=== PATIENT | female | born 2000 | race Caucasian/White ===

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

== ENCOUNTER 2019-01-15 11:18 | Emergency (ER) | payer OTHER ==
[2019-01-15 13:08] VITALS: TEMP 98.5
--- NOTE | 2019-01-15 14:12 | ED ---
General Adult HPI - General Chief complaint: Nausea/Vomiting/Diarrhea Stated complaint: vomiting/dizziness Time Seen by Provider: 01/15/19 13:34 Source: patient Mode of arrival: ambulatory Limitations: no limitations - History of Present Illness Initial comments: Patient is a 18-year-old female presenting to emergency Department with a chief complaint of a possible . Patient reports approximately 1 week ago she has developed nausea and vomiting and intermittent abdominal pain. Patient reports the nausea vomiting is not related to oral intake. Patient reports she is in a monogamous relationship with her boyfriend and is not concerned for STDs. Patient is not on any control. They do have unprotected sex. Patient did take a test at home and it showed a "faint line". Patient reports she went to a walk-in clinic where was also tested positive but she was not given any further instructions. Patient denies any vaginal discharge or bleeding. Patient denies increased urgency or frequency. She denies any other symptoms. - Related Data Previous Rx's Medication Instructions Recorded Meclizine [Antivert] 25 mg PO BID #20 tab 10/23/18 Ondansetron Odt [Zofran Odt] 4 mg PO Q8HR PRN #20 tab 10/23/18 Ondansetron Odt [Zofran Odt] 4 mg PO Q8HR PRN #10 tab 01/15/19 Allergies Allergy/AdvReac Type Severity Reaction Status Date / Time No Known Allergies Allergy Verified 01/15/19 13:03 Review of Systems ROS Statement: Those systems with pertinent positive or pertinent negative responses have been documented in the HPI. ROS Other: All systems not noted in ROS Statement are negative. Past Medical History Past Medical History: No Reported History History of Any Multi-Drug Resistant Organisms: None Reported Past Surgical History: Tonsillectomy Additional Past Surgical History / Comment(s): back surgery Past Psychological History: Anxiety, Bipolar Smoking Status: Never smoker Past Alcohol Use History: None Reported Past Drug Use History: None Reported General Exam Limitations: no limitations General appearance: alert, in no apparent distress Head exam: Present: atraumatic, normocephalic, normal inspection Eye exam: Present: normal appearance, PERRL, EOMI Pupils: Present: normal accommodation ENT exam: Present: normal exam, mucous membranes moist, normal external ear exam Neck exam: Present: normal inspection, full ROM Respiratory exam: Present: normal lung sounds bilaterally Cardiovascular Exam: Present: regular rate, normal rhythm, normal heart sounds GI/Abdominal exam: Present: soft, tenderness (Mild tenderness in the suprapubic region), guarding, rebound, normal bowel sounds Extremities exam: Present: normal inspection, full ROM Back exam: Present: normal inspection, full ROM. Absent: CVA tenderness (R), CVA tenderness (L) Neurological exam: Present: alert, oriented X3 Psychiatric exam: Present: normal affect, normal mood Skin exam: Present: warm, intact, normal color Course Vital Signs 01/15/19 01/15/19 13:03 15:03 Temperature 98.5 F Pulse Rate 90 84 Respiratory 18 16 Rate Blood Pressure 114/76 120/78 O2 Sat by Pulse 98 98 Oximetry Medical Decision Making - Medical Decision Making Patient is a 18-year-old female presenting to emergency Department with a chief complaint of a possible . Patient reports of the past week she has developed nausea and vomiting with intermittent abdominal cramping. Patient reports she expected her period about the same time she developed her symptoms. Patient reports her periods are typically had but this time it has only been spotting mildly. Patient is concerned for . Patient does not have a concern for STDs because she is a monogamous relationship with her boyfriend. Patient does practice unprotected sex. Her test showed unreliable results. Serum hCG is negative. The rest of the laboratory work is unremarkable. Patient declined a pelvic exam. Patient doesn't have any UTI type symptoms. Patient doesn't have any vaginal bleeding, discharge or foul smell. I have low suspicion for a vaginal infection. Patient given Zofran to manage the nausea and vomiting. I suspect her symptoms to be a result of her menstrual cycle. Patient advised to follow-up with a paperboard box maker and possibly begin a course of oral contraceptives. Strict return parameters were thoroughly discussed the patient was understanding and agreeable. Case discussed physician. - Lab Data Result diagrams: 01/15/19 14:05 01/15/19 14:05 Lab Results 01/15/19 01/15/19 01/15/19 Range/Units 14:05 14:05 14:05 WBC 6.3 (4.0-11.0) k/uL RBC 4.97 (3.80-5.40) m/uL Hgb 14.8 (11.4-16.0) gm/dL Hct 42.9 (34.0-46.0) % MCV 86.3 (80.0-100.0) fL MCH 29.8 (25.0-35.0) pg MCHC 34.6 (31.0-37.0) g/dL RDW 12.5 (11.5-15.5) % Plt Count 275 (150-450) k/uL Neutrophils % 53 % Lymphocytes % 33 % Monocytes % 6 % Eosinophils % 2 % Basophils % 3 % Neutrophils # 3.4 (1.3-7.7) k/uL Lymphocytes # 2.1 (1.0-4.8) k/uL Monocytes # 0.4 (0-1.0) k/uL Eosinophils # 0.2 (0-0.7) k/uL Basophils # 0.2 (0-0.2) k/uL Sodium 142 (137-145) mmol/L Potassium 3.6 (3.5-5.1) mmol/L Chloride 105 (98-107) mmol/L Carbon Dioxide 21 L (22-30) mmol/L Anion Gap 16 mmol/L BUN 10 (7-17) mg/dL Creatinine 0.63 (0.52-1.04) mg/dL Est GFR (CKD-EPI)AfAm >90 (>60 ml/min/1.73 sqM) Est GFR (CKD-EPI)NonAf >90 (>60 ml/min/1.73 sqM) Glucose 87 (74-99) mg/dL Calcium 9.8 (8.4-10.2) mg/dL Total Bilirubin 0.7 (0.2-1.3) mg/dL AST 29 (14-36) U/L ALT 13 (9-52) U/L Alkaline Phosphatase 90 (38-126) U/L Total Protein 8.5 H (6.3-8.2) g/dL Albumin 5.0 (3.5-5.0) g/dL HCG, Qual Not Detected Urine Color Yellow Urine Appearance Clear (Clear) Urine pH 6.5 (5.0-8.0) Ur Specific [place] 1.018 (1.001-1.035) Urine Protein Negative (Negative) Urine Glucose (UA) Negative (Negative) Urine Ketones Negative (Negative) Urine Blood Negative (Negative) Urine Nitrite Negative (Negative) Urine Bilirubin Negative (Negative) Urine Urobilinogen 3.0 (<2.0) mg/dL Ur Leukocyte Esterase Negative (Negative) Disposition Clinical Impression: Abdominal discomfort, Nausea & vomiting, Possible Disposition: HOME SELF-CARE Condition: Stable Instructions (If sedation given, give patient instructions): Acute Nausea and Vomiting (ED) Additional Instructions: Please take prescribed medication as directed. Please follow with primary care. Please return to emergency department if symptoms worsen. Prescriptions: Ondansetron Odt [Zofran Odt] 4 mg PO Q8HR PRN #10 tab PRN Reason: Nausea Is patient prescribed a controlled substance at d/c from ED?: No Referrals: None,Stated [Primary Care Provider] - 1-2 days Time of Disposition: 14:52
[2019-01-15 14:20] LABS: Appearance,Urine Clear (Clear); Basophils # (A) 0.2 k/uL (0-0.2); Basophils % (A) 3 %; Bilirubin,Urine Negative (Negative); Blood,Urine Negative (Negative); Color,Urine Yellow; Eosinophils # (A) 0.2 k/uL (0-0.7); Eosinophils % (A) 2 %; Glucose,Urine (UA) Negative (Negative); HCT 42.9 % (34.0-46.0); HGB 14.8 gm/dL (11.4-16.0); Ketones,Urine Negative (Negative); Leukocyte Esterase,Urine Negative (Negative); Lymphocytes # (A) 2.1 k/uL (1.0-4.8); Lymphocytes % (A) 33 %; MCH 29.8 pg (25.0-35.0); MCHC 34.6 g/dL (31.0-37.0); MCV 86.3 fL (80.0-100.0); Mean Platelet Volume 8.7; Monocytes # (A) 0.4 k/uL (0-1.0); Monocytes % (A) 6 %; Neutrophils # (A) 3.4 k/uL (1.3-7.7); Neutrophils % (A) 53 %; Nitrite,Urine Negative (Negative); PH, Urine 6.5 (5.0-8.0); Platelet Count 275 k/uL (150-450); Protein,Urine Negative (Negative); RBC 4.97 m/uL (3.80-5.40); RDW 12.5 % (11.5-15.5); Specific Gravity,Urine 1.018 (1.001-1.035); WBC 6.3 k/uL (4.0-11.0)
[2019-01-15 14:28] LABS: HCG,Qualitative Serum Not Detected
[2019-01-15 14:37] LABS: ALT 13 U/L (9-52); AST 29 U/L (14-36); African American GFR (CKD) >90 (>60 ml/min/1.73 sqM); Alkaline Phosphatase 90 U/L (38-126); Anion Gap 16 mmol/L; Blood Urea Nitrogen 10 mg/dL (7-17); Calcium 9.8 mg/dL (8.4-10.2); Carbon Dioxide 21 mmol/L (22-30); Chloride 105 mmol/L (98-107); Glucose 87 mg/dL (74-99); Potassium 3.6 mmol/L (3.5-5.1); Sodium 142 mmol/L (137-145); Total Bilirubin 0.7 mg/dL (0.2-1.3); Total Protein 8.5 g/dL (6.3-8.2)
[2019-01-15] MEDS ORDERED: ONDANSETRON 4 MG ODT STARTER PACK 2 TAB BTL PO STA (14:52)
[2019-01-15] MEDS ORDERED: ONDANSETRON 4 MG/2 ML VIAL IVP STA (14:52)
[2019-01-15 15:08] VITALS: BP 120/78; PULSE 84; RESP 16
== END 2019-01-15 15:03 | disposition home or self-care (01) ==
LOC: EC 11:18
DX: R11.2 Nausea with vomiting, unspecified (principal); R10.9 Unspecified abdominal pain; R19.7 Diarrhea, unspecified; R42 Dizziness and giddiness
CPT/HCPCS: 36415; 80053; 85025; 81003; 84703; 99284; 96374; J2405; S0119

== ENCOUNTER 2019-01-18 12:50 | Inpatient (IN) | payer OTHER ==
[2019-01-18 13:48] LABS: Amphetamine Screen,Urine Not Detected (NotDetected); Barbiturate Screen,Urine Not Detected (NotDetected); Benzodiazepines Screen,Urine Not Detected (NotDetected); Cocaine Screen,Urine Not Detected (NotDetected); Methadone Screen, Urine Not Detected (NotDetected); Opiate Screen,Urine Not Detected (NotDetected); Oxycodone Screen, Urine Not Detected (NotDetected); Phencyclidine Screen,Urine Not Detected (NotDetected); Tricyclic Antidepressant,Urine Not Detected (NotDetected); Urn Cannabinoid Scrn Not Detected (NotDetected)
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
[2019-01-18] MEDS ORDERED: ACETAMINOPHEN TAB 500 MG TAB PO STA (16:04)
[2019-01-18] MEDS ORDERED: IBUPROFEN 600 MG TAB PO STA (16:04)
[2019-01-18] MEDS ORDERED: LORazepam 1 MG TAB PO PRN (16:28)
[2019-01-18] MEDS ORDERED: MAGNESIUM HYDROXIDE 2,400 MG/10 ML CUP PO PRN (16:28)
[2019-01-18] MEDS ORDERED: MAG HYDROX/AL HYDROX/SIMETH 30 ML CUP PO PRN (16:28)
[2019-01-18 17:18] LABS: Appearance,Urine Cloudy (Clear); Bacteria,Urine Occasional /hpf; Bilirubin,Urine Negative (Negative); Blood,Urine Negative (Negative); Color,Urine Yellow; Glucose,Urine (UA) Negative (Negative); Ketones,Urine 1+ (Negative); Leukocyte Esterase,Urine Negative (Negative); Mucus,Urine Few /hpf; Nitrite,Urine Negative (Negative); PH, Urine 6.5 (5.0-8.0); Protein,Urine Negative (Negative); RBC,Urine 1 /hpf (0-5); Specific Gravity,Urine 1.022 (1.001-1.035); Squamous Epithelial Cell,Urine 7 /hpf (0-4); Urobilinogen,Urine <2.0 mg/dL (<2.0); WBC,Urine 1 /hpf (0-5)
[2019-01-18 18:20] VITALS: BMI 26.5
[2019-01-18] MEDS: IBUPROFEN 400 MG TAB PO PRN (21:08)
--- NOTE | 2019-01-18 21:13 | P.MDCNMH ---
History of Present Illness H&P Date: 01/18/19 Chief Complaint: suicidal ideation 18-year-old female with no significant past medical history Patient comes in today voluntarily due to suicidal ideation she denies any active plan she never attempted to commit suicide. Patient also feels depressed and seek help and psychiatry evaluation. Otherwise she denies any active medical issues he reports chronic low back pain with history of scoliosis status post saba insertion. Otherwise she denies any fevers or chills nausea vomiting coughing or chest pain denies any trouble breathing abdominal pain changes in her bowel or urinary habits Review of Systems Pertinent positives as noted in HPI. All other systems were reviewed and are negative Past Medical History Past Medical History: No Reported History History of Any Multi-Drug Resistant Organisms: None Reported Past Surgical History: Tonsillectomy Additional Past Surgical History / Comment(s): back surgery Past Psychological History: Anxiety, Bipolar Smoking Status: Never smoker Past Alcohol Use History: None Reported Past Drug Use History: None Reported - Past Family History mother Additional Family Medical History / Comment(s): depression, schizophrenia, from a suicide Medications and Allergies Home Medications Medication Instructions Recorded Confirmed Type Ibuprofen [Motrin Ib] 400 mg PO Q6H PRN 01/18/19 01/18/19 History Allergies Allergy/AdvReac Type Severity Reaction Status Date / Time No Known Allergies Allergy Verified 01/18/19 17:06 Physical Exam Vitals: Vital Signs Temp Pulse Pulse Resp BP BP Pulse Ox 01/18/19 18:12 98.8 F 96 14 111/64 98 01/18/19 17:17 98.8 F 96 14 111/64 98 01/18/19 16:12 86 16 110/69 99 01/18/19 12:51 98.6 F 112 H 20 120/81 97 Intake and Output 01/18/19 01/18/19 01/18/19 06:59 14:59 22:59 Other: Weight 68.039 kg 81.5 kg Constitutional: No acute distress, conversant, pleasant Eyes: Anicteric sclerae, moist conjunctiva, no lid-lag Pupils equal round reactive to light ENMT: NC/AT Oropharynx clear, no erythema, exudates Neck: Supple, FROM, no masses, or JVD No carotid bruits No thyromegaly Lungs: Clear to auscultation Clear to percussion Normal respiratory effort, no accessory muscle use Cardiovascular: Heart regular in rate and rhythm, No murmurs, gallops, or rubs No peripheral edema Abdominal: Soft,reported some mild discomfort to palpation of the left lower back Nontender, no guarding, rebound or rigidity Abdomen moving with respiration Normoactive bowel sounds No hepatomegaly, No splenomegaly No palpable mass No abdominal wall hernia noted Skin: Normal temperature, tone, texture, turgor No induration No subcutaneous nodules No rash, lesions No ulcers Extremities: No digital cyanosis No clubbing Pedal pulses intact and symmetrical Radial pulses intact and symmetrical No calf tenderness fat pad over C7 Psychiatric: Alert and oriented to person, place and time Appropriate affect fair judgment Neuro Muscles Strength 5/5 in all 4 extremities Sensation to light touch grossly present throughout Cranial nerves II-XII grossly intact No focal sensory deficits Lymphatics: no palpable cervical or supraclavicular , or inguinal lymph nodes Cranial Nerve Examination - Cranial Nerves Cranial Nerve II- Optic: Intact Cranial Nerve III- Oculomotor: Intact Cranial Nerve IV- Trochlear: Intact Cranial Nerve V- Trigeminal: Intact Cranial Nerve - Abducens: Intact Cranial Nerve VII- Facial: Intact Cranial Nerve VIII- Auditory: Intact Cranial Nerve IX- Glossopharyngeal: Intact Cranial Nerve X- Vagus: Intact Cranial Nerve XI- Accessory: Intact Cranial Nerve XII- Hypoglossal: Intact Results Labs: Abnormal Lab Results - Last 24 Hours (Table) 01/18/19 Range/Units 13:04 Urine Appearance Cloudy H (Clear) Urine Ketones 1+ H (Negative) Ur Squamous Epith Cells 7 H (0-4) /hpf Urine Bacteria Occasional H (None) /hpf Urine Mucus Few H (None) /hpf Assessment and Plan Assessment: 18-year-old female with no significant past medical history presented to the hospital due to overwhelming depression and some suicidal ideation medicine consulted for medical management Plan: depression and suicidal ideation Management per psych Suicide precautions Chronic back pain with history of scoliosis status post rods Pain control with ibuprofen Follow-up outpatient with ortho Low risk for DVT patient ambulatory Thank you for allowing us to participate in the care of this patient. We will follow peripherally. Do not hesitate to contact us with questions. Someone can be reached from the [facility] hospitalist group at all hours of the day at [phone].
[2019-01-19 08:13] LABS: ALT 19 U/L (9-52); AST 18 U/L (14-36); African American GFR (CKD) >90 (>60 ml/min/1.73 sqM); Albumin 4.4 g/dL (3.5-5.0); Alkaline Phosphatase 93 U/L (38-126); Anion Gap 12 mmol/L; Blood Urea Nitrogen 10 mg/dL (7-17); Calcium 9.7 mg/dL (8.4-10.2); Carbon Dioxide 24 mmol/L (22-30); Chloride 104 mmol/L (98-107); Cholesterol 148 mg/dL (<200); Glucose 97 mg/dL (74-99); HDL Cholesterol 37 mg/dL (40-60); LDL Cholesterol,Calculated 92 mg/dL (0-99); Potassium 4.3 mmol/L (3.5-5.1); Sodium 140 mmol/L (137-145); Total Bilirubin 0.6 mg/dL (0.2-1.3); Total Protein 7.4 g/dL (6.3-8.2); Triglycerides 96 mg/dL (<150)
[2019-01-19 08:17] LABS: Basophils # (A) 0.1 k/uL (0-0.2); Basophils % (A) 1 %; Eosinophils # (A) 0.1 k/uL (0-0.7); Eosinophils % (A) 2 %; HCT 37.3 % (34.0-46.0); HGB 13.3 gm/dL (11.4-16.0); Lymphocytes % (A) 15 %; MCH 30.6 pg (25.0-35.0); MCHC 35.6 g/dL (31.0-37.0); MCV 85.8 fL (80.0-100.0); Mean Platelet Volume 9.1; Monocytes # (A) 0.4 k/uL (0-1.0); Monocytes % (A) 7 %; Neutrophils # (A) 4.8 k/uL (1.3-7.7); Neutrophils % (A) 73 %; Platelet Count 225 k/uL (150-450); RBC 4.34 m/uL (3.80-5.40); RDW 12.4 % (11.5-15.5); WBC 6.6 k/uL (4.0-11.0)
[2019-01-19] MEDS: IBUPROFEN 400 MG TAB PO PRN (13:49)
[2019-01-19] MEDS: ACETAMINOPHEN TAB 325 MG TAB PO PRN (15:30)
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
[2019-01-19 21:03] LABS: Hemoglobin A1C 4.8 % (4.0-6.0)
[2019-01-20] MEDS: buPROPion XL 150 MG TAB.ER.24H PO SCH (08:57)
--- NOTE | 2019-01-20 11:06 | P.PN ---
Progress Note - Text Progress Note Date: 01/20/19 Identifying Information 18-year-old female admitted to [facility] with worsening symptoms of depression. Interval history Patient was seen today. She reports stuffy nose and difficulty breathing. She says motrin has helped her with her sore throat but complains of stuffy nose. She continues to report feeling amotivated. She reports poor sleep and asked for medication to help her with sleep. She reports being compliant wither prescribed medications. No side effects reported. MENTAL STATUS EXAMINATION: Patient appears her stated age in fair grooming and hygiene. The patient is alert and oriented 4 and in no apparent distress. Motor and speech behaviors are within normal limits. Mood is "tired" and affect is constricted. thought processes linear thought content is negative for suicidal or homicidal ideation. insight and judgment are fair ASSESSMENT Major depression recurrent type PLAN: Continue wellbutrin 150mg po q day for depression Will start remeron 7.5mg po qhs for insomnia Will start her on Claritin D and flonase for nasal stuffiness and difficulty b reathing while pending an evaluation by asbestos shingle inspector.
[2019-01-20] MEDS: LORATADINE-PSEUDOEPH 5-120 MG 1 EACH TAB.ER.12H PO SCH ×2 (11:09→20:58)
[2019-01-20] MEDS: FLUTICASONE 50MCG/SPRAY NASAL 16GM EA NOSTRIL SCH (11:09)
[2019-01-20] MEDS: ACETAMINOPHEN TAB 325 MG TAB PO PRN (19:04)
[2019-01-20] MEDS: IBUPROFEN 400 MG TAB PO PRN (19:04)
[2019-01-20] MEDS: MIRTAZAPINE 15 MG TAB PO SCH (20:57)
[2019-01-21] MEDS: buPROPion XL 150 MG TAB.ER.24H PO SCH (08:00)
[2019-01-21] MEDS: FLUTICASONE 50MCG/SPRAY NASAL 16GM EA NOSTRIL SCH (08:00)
[2019-01-21] MEDS: LORATADINE-PSEUDOEPH 5-120 MG 1 EACH TAB.ER.12H PO SCH ×2 (08:00→20:47)
--- NOTE | 2019-01-21 11:33 | P.PN ---
Progress Note - Text Interval history: The patient is found in the hallway she follows me to an interview room. She reports her mood has improved. She presented with suicidal ideation but states that that is improved. She states that she's been sleeping much better appetite is improved attention to ADLs has improved. She was started on Wellbutrin XL over the weekend as well as Remeron we discussed those medications in detail her questions were answered. She has no history of seizures. She states that she is upset that she is missing her first day of school tomorrow she is also missing work we discussed that we need to prioritize her safety over those settings although they are important. We discussed having a support meeting arranged by social work and she is agreeable. Mental status exam: The patient is an alert female appearing her stated age she stressor own clothing. Eye contact is appropriate speech is fluent spontaneous nonpressured. She reports that her mood has been depressed but it's improving and she feels safer. She is reporting no homicidal ideation intent or plan she is reporting no acute suicidal ideation intent or plan. She reports her hopeless thinking is resolving. She is tearful during a portion of the session but is redirectable. She reports no auditory or visual hallucinations or any specific delusions. She demonstrates no tangential thinking loose associations or flight of ideas. Insight and judgment improving. Plan: The patient will continue on her current psychotropic medication. We discussed possibly titrating the Wellbutrin XL to 300 mg but she does not wish to do that. We will have social work arrange a support meeting. We will consider discharging her in the next 1-2 days if clinically appropriate. Vital signs reviewed.
[2019-01-21] MEDS: IBUPROFEN 400 MG TAB PO PRN (18:23)
[2019-01-21] MEDS: MIRTAZAPINE 15 MG TAB PO SCH (20:46)
[2019-01-22 06:48] VITALS: BP 99/54; PULSE 87; RESP 18; TEMP 98.6
[2019-01-22] MEDS: buPROPion XL 150 MG TAB.ER.24H PO SCH (08:31)
[2019-01-22] MEDS: FLUTICASONE 50MCG/SPRAY NASAL 16GM EA NOSTRIL SCH (08:31)
[2019-01-22] MEDS: LORATADINE-PSEUDOEPH 5-120 MG 1 EACH TAB.ER.12H PO SCH (08:31)
--- NOTE | 2019-01-22 09:51 | P.DS ---
Providers Date of admission: 01/18/19 16:04 Expected date of discharge: 01/22/19 Attending physician: Toñito Ramirez Consults: 01/18/19 16:28 Consult Physician Routine Consulting Provider: Sandy Hickman Consult Reason/Comments: medical management Do you want consulting provider notified?: Yes Primary care physician: Stated None - Discharge Diagnosis(es) (1) Major depressive disorder, recurrent severe without psychotic features Current Visit: Yes Status: Acute Priority: High Hospital Course: Brief summary of admission note: This patient was admitted to the mental health unit for worsening symptoms of depression and suicidal ideation. She presented reporting difficulty getting out of bed having poor motivation thinking too much. This led to her having hopeless thinking and suicidal thoughts. Please refer to the psychiatric evaluation dictated 01/19/2019. Summary of hospital course: The patient was admitted to the mental health unit voluntarily by Dr. Cochran. I assumed care of the patient beginning yesterday. The patient was admitted for symptoms of depression with hopelessness thinking. She was placed on Wellbutrin XL 150 mg in the morning and Remeron 7.5 mg at bedtime. The patient was seen by internal medicine for routine history and physical exam. Social work met with the patient to complete a psychosocial assessment and begin discharge planning. The patient seemed to have reported a progressive improvement of symptoms while here. Yesterday she indicated that her suicidal thoughts had resolved she was no longer hopeless. We have decided to monitor her for another 24 hours to continue assessing her acute safety risk. She has been attending groups. She has been compliant with medication she's demonstrated no agitated behavior. 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 She states that her boyfriend is the only person available to participate in a support meeting. Mental status exam: The patient is a female appearing her stated age. She is dressed in her own clothing hygiene grooming adequate. Speech is fluent spontaneous nonpressured. She reports her mood is much improved. She reports no hopelessness thinking she reports no suicidal ideation intent or plan. She reports no homicidal ideation intent or plan. She endorses no auditory or visual hallucinations or any specific delusions. There is no observed evidence of psychosis. She demonstrates no tangential thinking loose associations or flight of ideas. She does not appear to be hypomanic or manic. Insight and judgment have improved. She is oriented to person place and date. As noted she is describing future oriented thinking. Impressions 1. Major depressive disorder recurrent severe without psychosis Plan: The patient will be discharged mental health unit today. She will return residing with her boyfriend. She will continue with Wellbutrin XL 150 mg in the morning. We discussed that it may be more therapeutic for her to be on the 300 mg dose but she refuses that dose at this time. She feels that the Remeron is unnecessary so we will discontinue that medication. She reports no use of alcohol or marijuana or illicit drugs and she is encouraged to continue abstaining from those substances. At this time there is no imminent safety risk she is appropriate for transition to outpatient care. She is instructed to return to the hospital with any acute safety concerns. Patient Condition at Discharge: Stable Plan - Discharge Summary Discharge Rx Participant: No New Discharge Prescriptions: New buPROPion XL [Wellbutrin XL] 150 mg PO DAILY #30 tab.er.24h Discontinued Ibuprofen [Motrin Ib] 400 mg PO Q6H PRN PRN Reason: Pain Discharge Medication List buPROPion XL [Wellbutrin XL] 150 mg PO DAILY #30 tab.er.24h 01/22/19 [Rx] Follow up Appointment(s)/Referral(s): None,Stated [Primary Care Provider] - 1-2 days Activity/Diet/Wound Care/Special Instructions: Activity and diet as tolerated. No guns or weapons in the home. Refrain from alcohol and street drugs not prescribed by your physician. If in need of medication refills, please go to your primary care physician, or to your out patient psychiatric provider. Please take all medications as prescribed, and attend all after care appointments as scheduled. If in crisis, please call , or go the nearest ER for an evaluation.
== END 2019-01-22 12:32 | disposition home or self-care (01) | DRG 885 ==
LOC: EC 12:50 → 3MHU 16:04
PROVIDERS: ADMIT Psychiatry & Neurology Psychiatry; ATTEND Psychiatry & Neurology Psychiatry
DX: F33.2 Major depressive disorder, recurrent severe without psychotic features (principal); R45.851 Suicidal ideations; M41.9 Scoliosis, unspecified; Z98.890 Other specified postprocedural states; Z65.3 Problems related to other legal circumstances; Z62.811 Personal history of psychological abuse in childhood; Z62.810 Personal history of physical and sexual abuse in childhood; Z81.8 Family history of other mental and behavioral disorders
CPT/HCPCS: 80053; 80061; 80306; 81001; 81025; 82075; 83036; 84443; 85025; 99285

== ENCOUNTER 2019-06-03 19:01 | Emergency (ER) | payer OTHER ==
[2019-06-03] MEDS ORDERED: ACETAMINOPHEN TAB 325 MG TAB PO STA (20:16)
--- NOTE | 2019-06-03 20:38 | XR ---
EXAMINATION TYPE: XR chest 2V DATE OF EXAM: 06/03/2019 COMPARISON: NONE HISTORY: Chest pain TECHNIQUE: Frontal and lateral views of the chest are obtained. FINDINGS: There is no focal air space opacity. No evidence for pneumothorax. No pleural effusion. The cardiac silhouette size is within normal limits. The osseous structures are grossly intact. Walsh rods are in place. IMPRESSION: 1. No acute cardiopulmonary process.
[2019-06-03] MEDS ORDERED: IBUPROFEN 600 MG TAB PO STA (20:42)
[2019-06-03 20:52] VITALS: RESP 18
[2019-06-03] MEDS ORDERED: SODIUM CHLORIDE 0.9% 1,000 ML IV ONE (22:04)
[2019-06-03] MEDS ORDERED: SODIUM CHLORIDE 0.9% 500 ML 500 ML IV ONE (22:04)
[2019-06-03 22:28] VITALS: BP 114/59; PULSE 89; TEMP 101
[2019-06-03 22:34] LABS: Basophils # (A) 0.1 k/uL (0-0.2); Basophils % (A) 1 %; Eosinophils # (A) 0.2 k/uL (0-0.7); Eosinophils % (A) 2 %; HCT 37.4 % (34.0-46.0); HGB 12.7 gm/dL (11.4-16.0); Lymphocytes # (A) 0.2 k/uL (1.0-4.8); Lymphocytes % (A) 3 %; MCH 29.2 pg (25.0-35.0); MCHC 33.9 g/dL (31.0-37.0); Mean Platelet Volume 9.4; Monocytes # (A) 0.3 k/uL (0-1.0); Monocytes % (A) 4 %; Neutrophils # (A) 6.3 k/uL (1.3-7.7); Neutrophils % (A) 89 %; Platelet Count 207 k/uL (150-450); RBC 4.35 m/uL (3.80-5.40); RDW 12.5 % (11.5-15.5); WBC 7.1 k/uL (4.0-11.0)
[2019-06-03 22:45] LABS: ALT 17 U/L (4-34); AST 21 U/L (14-36); African American GFR (CKD) >90 (>60 ml/min/1.73 sqM); Albumin 4.4 g/dL (3.5-5.0); Alkaline Phosphatase 88 U/L (38-126); Blood Urea Nitrogen 8 mg/dL (7-17); Calcium 9.4 mg/dL (8.4-10.2); Carbon Dioxide 21 mmol/L (22-30); Chloride 104 mmol/L (98-107); Glucose 96 mg/dL (74-99); Non-African American GFR(CKD) >90 (>60 ml/min/1.73 sqM); Sodium 136 mmol/L (137-145); Total Bilirubin 0.8 mg/dL (0.2-1.3); Total Protein 7.2 g/dL (6.3-8.2)
--- NOTE | 2019-06-03 22:50 | ED ---
URI HPI - General Chief Complaint: Upper Respiratory Infection Stated Complaint: Fever Time Seen by Provider: 06/03/19 20:05 Source: patient Mode of arrival: ambulatory Limitations: no limitations - History of Present Illness Initial Comments: 18-year-old female presenting today for chief complaint of cough, congestion, fever. Patient states that she has had cough congestion and fever for the past 2 days. Patient states that she also has a slight sore throat. Patient denies any specific sick contacts. Denies chest pain, admits to SOB with cough. Patient denies leg swelling, dysuria urgency frequency back pain, neck stiffness, CHRISTIANSEN, photophobia. remaining ROS (-). upon arrival patient appears well there is no sign of acute distress. Both body temperature and HR elevated. - Related Data Previous Rx's Medication Instructions Recorded buPROPion XL [Wellbutrin XL] 150 mg PO DAILY #30 tab.er.24h 01/22/19 Azithromycin [Zithromax Z-pack] 0 mg PO DIRECTED #6 tab 06/03/19 Allergies Allergy/AdvReac Type Severity Reaction Status Date / Time No Known Allergies Allergy Verified 06/03/19 19:32 Review of Systems ROS Statement: Those systems with pertinent positive or pertinent negative responses have been documented in the HPI. ROS Other: All systems not noted in ROS Statement are negative. Past Medical History Past Medical History: No Reported History Additional Past Medical History / Comment(s): scoliosis History of Any Multi-Drug Resistant Organisms: None Reported Past Surgical History: Back Surgery, Tonsillectomy Additional Past Surgical History / Comment(s): back surgery Past Psychological History: Anxiety, Bipolar Smoking Status: Never smoker Past Alcohol Use History: None Reported Past Drug Use History: None Reported - Past Family History mother Additional Family Medical History / Comment(s): depression, schizophrenia, from a suicide General Exam - General Exam Comments Initial Comments: General: The patient is awake and alert, in no distress, and does not appear acutely ill. Eye: +3 mm pupils are equal, round and reactive to light, extra-ocular movements are intact. No nystagmus. There is normal conjunctiva bilaterally. No signs of icterus. No photophobia Ears, nose, mouth and throat: There are moist mucous membranes and no oral lesions. Oropharynx was not erythematous there is no tonsillar enlargement exudates or lesions. Uvula midline. Tympanic membranes are not erythematous or is no effusions bulging or retraction. No tenderness to palpation of the mastoid. No anterior cervical lymphadenopathy. Rhinorrhea, clear and bilateral nares. No tripoding, no drooling. Neck: The neck is supple, there is no tenderness or JVD. No nuchal rigidity Cardiovascular: There is a regular rate and rhythm. No murmur, rub or gallop is appreciated. Respiratory: Lungs are clear to auscultation, respirations are non-labored, breath sounds are equal. No wheezes, stridor, rales, or rhonchi. No retractions or abdominal breathing. Gastrointestinal: Soft, non-distended, non-tender abdomen without masses or organomegaly noted. There is no rebound or guarding present. Bowel sounds are unremarkable. Musculoskeletal: Normal ROM, no tenderness. Strength 5/5. Sensation intact. Radial pulses equal bilaterally 2+. Neurological: A&O x 3. CN II-XII intact, There are no obvious motor or sensory deficits. Coordination appears grossly intact. Speech appears normal, no muffling. Skin: Skin is warm and dry and no rashes or lesions are noted. No extremity edema Psychiatric: Cooperative Limitations: no limitations Course Vital Signs 06/03/19 06/03/19 06/03/19 19:29 20:45 21:19 Temperature 101.9 F H 102.6 F H Pulse Rate 114 H Respiratory 20 18 Rate Blood Pressure 101/65 O2 Sat by Pulse 100 Oximetry 06/03/19 06/03/19 22:26 23:07 Temperature 101 F H 101 F H Pulse Rate 89 89 Respiratory 18 18 Rate Blood Pressure 114/59 114/59 O2 Sat by Pulse 99 99 Oximetry - Reevaluation(s) Reevaluation #1: Patient felt lightheaded, EKG/basic labs obtained, VS repeated Medical Decision Making - Medical Decision Making 18-year-old female presenting today for chief complaint of cough congestion sore throat. Influenza testing negative however there is chance that this is false- negative patient has no chest pain admits to shortness breath with cough patient oxygenating well on room air EKG no acute findings as this was obtained after patient had a lightheaded spell that resolved, occurred when stood up fast. Given IVF. Pt has no leukocytosis. Labs stable She appears nontoxic. No signs of nuchal irritation. At this time I feel patient is stable for discharge was sent to neck treatment ibuprofen Tylenol and increase oral fluids. Patient is agreeable and was discharged appear well return parameters were discussed at length - Lab Data Result diagrams: 06/03/19 22:15 06/03/19 22:15 Lab Results 06/03/19 06/03/19 06/03/19 Range/Units 19:28 21:18 22:15 WBC 7.1 (4.0-11.0) k/uL RBC 4.35 (3.80-5.40) m/uL Hgb 12.7 (11.4-16.0) gm/dL Hct 37.4 (34.0-46.0) % MCV 86.0 (80.0-100.0) fL MCH 29.2 (25.0-35.0) pg MCHC 33.9 (31.0-37.0) g/dL RDW 12.5 (11.5-15.5) % Plt Count 207 (150-450) k/uL Neutrophils % 89 % Lymphocytes % 3 % Monocytes % 4 % Eosinophils % 2 % Basophils % 1 % Neutrophils # 6.3 (1.3-7.7) k/uL Lymphocytes # 0.2 L (1.0-4.8) k/uL Monocytes # 0.3 (0-1.0) k/uL Eosinophils # 0.2 (0-0.7) k/uL Basophils # 0.1 (0-0.2) k/uL Sodium (137-145) mmol/L Potassium (3.5-5.1) mmol/L Chloride (98-107) mmol/L Carbon Dioxide (22-30) mmol/L BUN (7-17) mg/dL Creatinine (0.52-1.04) mg/dL Est GFR (CKD-EPI)AfAm (>60 ml/min/1.73 sqM) Est GFR (CKD-EPI)NonAf (>60 ml/min/1.73 sqM) Glucose (74-99) mg/dL Calcium (8.4-10.2) mg/dL Total Bilirubin (0.2-1.3) mg/dL AST (14-36) U/L ALT (4-34) U/L Alkaline Phosphatase (38-126) U/L Total Protein (6.3-8.2) g/dL Albumin (3.5-5.0) g/dL Urine Color Yellow Urine Appearance Clear (Clear) Urine pH 8.0 (5.0-8.0) Ur Specific [place] 1.011 (1.001-1.035) Urine Protein Negative (Negative) Urine Glucose (UA) Negative (Negative) Urine Ketones Negative (Negative) Urine Blood Negative (Negative) Urine Nitrite Negative (Negative) Urine Bilirubin Negative (Negative) Urine Urobilinogen <2.0 (<2.0) mg/dL Ur Leukocyte Esterase Moderate H (Negative) Urine WBC 3 (0-5) /hpf Ur Squamous Epith Cells 4 (0-4) /hpf Urine Bacteria Rare H (None) /hpf Urine Mucus Rare H (None) /hpf Influenza Type A RNA Not Detected (Not Detectd) Influenza Type B (PCR) Not Detected (Not Detectd) Group A Strep Rapid (Negative) 06/03/19 06/03/19 Range/Units 22:15 Unknown WBC (4.0-11.0) k/uL RBC (3.80-5.40) m/uL Hgb (11.4-16.0) gm/dL Hct (34.0-46.0) % MCV (80.0-100.0) fL MCH (25.0-35.0) pg MCHC (31.0-37.0) g/dL RDW (11.5-15.5) % Plt Count (150-450) k/uL Neutrophils % % Lymphocytes % % Monocytes % % Eosinophils % % Basophils % % Neutrophils # (1.3-7.7) k/uL Lymphocytes # (1.0-4.8) k/uL Monocytes # (0-1.0) k/uL Eosinophils # (0-0.7) k/uL Basophils # (0-0.2) k/uL Sodium 136 L (137-145) mmol/L Potassium 3.7 (3.5-5.1) mmol/L Chloride 104 (98-107) mmol/L Carbon Dioxide 21 L (22-30) mmol/L BUN 8 (7-17) mg/dL Creatinine 0.66 (0.52-1.04) mg/dL Est GFR (CKD-EPI)AfAm >90 (>60 ml/min/1.73 sqM) Est GFR (CKD-EPI)NonAf >90 (>60 ml/min/1.73 sqM) Glucose 96 (74-99) mg/dL Calcium 9.4 (8.4-10.2) mg/dL Total Bilirubin 0.8 (0.2-1.3) mg/dL AST 21 (14-36) U/L ALT 17 (4-34) U/L Alkaline Phosphatase 88 (38-126) U/L Total Protein 7.2 (6.3-8.2) g/dL Albumin 4.4 (3.5-5.0) g/dL Urine Color Urine Appearance (Clear) Urine pH (5.0-8.0) Ur Specific [place] (1.001-1.035) Urine Protein (Negative) Urine Glucose (UA) (Negative) Urine Ketones (Negative) Urine Blood (Negative) Urine Nitrite (Negative) Urine Bilirubin (Negative) Urine Urobilinogen (<2.0) mg/dL Ur Leukocyte Esterase (Negative) Urine WBC (0-5) /hpf Ur Squamous Epith Cells (0-4) /hpf Urine Bacteria (None) /hpf Urine Mucus (None) /hpf Influenza Type A RNA (Not Detectd) Influenza Type B (PCR) (Not Detectd) Group A Strep Rapid Negative (Negative) Disposition Clinical Impression: Cough, Fever, Congestion of nasal sinus, Chills Disposition: HOME SELF-CARE Condition: Good Additional Instructions: Please use medication as discussed. Please follow-up with family doctor in the next 2 days. Please return to emergency room if the symptoms increase or worsen or for any other concerns. Prescriptions: Azithromycin [Zithromax Z-pack] 0 mg PO DIRECTED #6 tab Is patient prescribed a controlled substance at d/c from ED?: No Referrals: Nile Gil MD [Primary Care Provider] - 1-2 days Time of Disposition: 22:50
[2019-06-03 22:57] LABS: Potassium 3.7 mmol/L (3.5-5.1)
[2019-06-03 23:00] LABS: Appearance,Urine Clear (Clear); Bacteria,Urine Rare /hpf; Bilirubin,Urine Negative (Negative); Blood,Urine Negative (Negative); Color,Urine Yellow; Glucose,Urine (UA) Negative (Negative); Ketones,Urine Negative (Negative); Leukocyte Esterase,Urine Moderate (Negative); Mucus,Urine Rare /hpf; Nitrite,Urine Negative (Negative); Protein,Urine Negative (Negative); Specific Gravity,Urine 1.011 (1.001-1.035); Squamous Epithelial Cell,Urine 4 /hpf (0-4); Urobilinogen,Urine <2.0 mg/dL (<2.0); WBC,Urine 3 /hpf (0-5)
== END 2019-06-03 23:08 | disposition home or self-care (01) ==
LOC: EC 19:01
DX: R05 Cough (principal); R50.9 Fever, unspecified; R09.81 Nasal congestion
CPT/HCPCS: 36415; 71046; 80053; 81001; 85025; 87081; 87430; 87502; 93005; 96360; 99284

== ENCOUNTER 2019-12-18 00:45 | Emergency (ER) | payer OTHER ==
[2019-12-18 00:53] VITALS: TEMP 98.2
[2019-12-18] MEDS ORDERED: SODIUM CHLORIDE 0.9% 1,000 ML IV STA (01:01)
[2019-12-18] MEDS ORDERED: SODIUM CHLORIDE 0.9% 500 ML 500 ML IV STA (01:01)
[2019-12-18] MEDS ORDERED: ONDANSETRON 4 MG/2 ML VIAL IVP STA (01:06)
[2019-12-18 01:45] LABS: Appearance,Urine Clear (Clear); Bilirubin,Urine Negative (Negative); Blood,Urine Negative (Negative); Color,Urine Yellow; Glucose,Urine (UA) Negative (Negative); Ketones,Urine Negative (Negative); Leukocyte Esterase,Urine Trace (Negative); Mucus,Urine Occasional /hpf; Nitrite,Urine Negative (Negative); PH, Urine 6.5 (5.0-8.0); Protein,Urine Negative (Negative); RBC,Urine 1 /hpf (0-5); Specific Gravity,Urine 1.023 (1.001-1.035); Squamous Epithelial Cell,Urine 2 /hpf (0-4); Urobilinogen,Urine <2.0 mg/dL (<2.0); WBC,Urine 2 /hpf (0-5)
[2019-12-18 01:47] LABS: Basophils % (A) 1 %; Eosinophils # (A) 0.1 k/uL (0-0.7); Eosinophils % (A) 2 %; HCT 40.7 % (34.0-46.0); Lymphocytes # (A) 1.9 k/uL (1.0-4.8); Lymphocytes % (A) 28 %; MCH 29.8 pg (25.0-35.0); MCHC 34.3 g/dL (31.0-37.0); Mean Platelet Volume 9.2; Monocytes # (A) 0.4 k/uL (0-1.0); Monocytes % (A) 5 %; Neutrophils # (A) 4.5 k/uL (1.3-7.7); Neutrophils % (A) 64 %; Platelet Count 308 k/uL (150-450); RBC 4.69 m/uL (3.80-5.40); RDW 12.6 % (11.5-15.5)
[2019-12-18 01:54] LABS: ALT 18 U/L (4-34); AST 22 U/L (14-36); African American GFR (CKD) >90 (>60 ml/min/1.73 sqM); Albumin 4.5 g/dL (3.5-5.0); Alkaline Phosphatase 76 U/L (38-126); Amylase 41 U/L (30-110); Anion Gap 7 mmol/L; Blood Urea Nitrogen 15 mg/dL (7-17); Calcium 9.5 mg/dL (8.4-10.2); Carbon Dioxide 23 mmol/L (22-30); Chloride 106 mmol/L (98-107); Glucose 100 mg/dL (74-99); Lipase 64 U/L (23-300); Non-African American GFR(CKD) >90 (>60 ml/min/1.73 sqM); Sodium 136 mmol/L (137-145); Total Bilirubin 0.4 mg/dL (0.2-1.3); Total Protein 7.4 g/dL (6.3-8.2)
[2019-12-18] MEDS ORDERED: PYRIDOXINE 100 MG/ML 1 ML VIAL IM STA (02:14)
--- NOTE | 2019-12-18 02:17 | XR ---
EXAM: XR Abdomen, 1 View CLINICAL HISTORY: abdominal pain TECHNIQUE: Frontal supine view of the abdomen/pelvis. COMPARISON: No relevant prior studies available. FINDINGS: Gastrointestinal tract: Gas filled loops of nondilated bowel. Moderate stool in the descending and one in flexion or of the colon. No pneumatosis. Bones/joints: Thoracolumbar scoliosis and spinal fusion. No acute osseous abnormality. Other findings: No suspicious calcification. IMPRESSION: Nonspecific bowel gas pattern. No pneumatosis or pneumoperitoneum.
[2019-12-18 02:20] VITALS: BP 116/68; PULSE 71; RESP 17
--- NOTE | 2019-12-18 02:24 | ED ---
Nausea/Vomiting/Diarrhea HPI - General Chief complaint: Nausea/Vomiting/Diarrhea Stated complaint: Nausea, vomiting Time Seen by Provider: 12/18/19 00:54 Source: patient Mode of arrival: ambulatory Limitations: physical limitation - History of Present Illness Initial comments: 19-year-old feel presents today for nausea vomiting diarrhea. Patient states that she has had nausea vomiting diarrhea for the past 3 days. She states that she also has been in a fog and fatigued. Patient denies any headache visual changes neck stiffness she denies any head injury. Patient states she is also currently battling depression and just saw her primary care provider who told her to take a 5 hour energy for the vitamins are provided within this energy shot. Patient states that it only made her jittery, she states she took i 5 hour prior to arrival and saw PCP earlier today. Jd states something in her blood work possibly looked like lupus and now she is anxious, has another appointment for more blood work. Patient denies any abdominal pain she denies chest pain shortness of breath, leg swelling, ataxia, localized weakness or sensation deficits-- she appears well and nontoxic on arrival and does not endorse additional complaints. - Related Data Previous Rx's Medication Instructions Recorded buPROPion XL [Wellbutrin XL] 150 mg PO DAILY #30 tab.er.24h 01/22/19 Azithromycin [Zithromax Z-pack] 0 mg PO DIRECTED #6 tab 06/03/19 Allergies Allergy/AdvReac Type Severity Reaction Status Date / Time No Known Allergies Allergy Verified 12/18/19 00:53 Review of Systems ROS Statement: Those systems with pertinent positive or pertinent negative responses have been documented in the HPI. ROS Other: All systems not noted in ROS Statement are negative. Past Medical History Past Medical History: No Reported History Additional Past Medical History / Comment(s): scoliosis, LUPUS History of Any Multi-Drug Resistant Organisms: None Reported Past Surgical History: Back Surgery, Tonsillectomy Additional Past Surgical History / Comment(s): back surgery Past Psychological History: Anxiety, Bipolar Smoking Status: Never smoker Past Alcohol Use History: None Reported Past Drug Use History: None Reported - Past Family History mother Additional Family Medical History / Comment(s): depression, schizophrenia, from a suicide General Exam - General Exam Comments Initial Comments: General: The patient is awake and alert, in no distress, and does not appear acutely ill. Eye: Pupils are equal, round and reactive to light, extra-ocular movements are intact. No nystagmus. There is normal conjunctiva bilaterally. No signs of icterus. Ears, nose, mouth and throat: There are moist mucous membranes and no oral lesions. Neck: The neck is supple, there is no tenderness or JVD. Cardiovascular: There is a regular rate and rhythm. No murmur, rub or gallop is appreciated. Respiratory: Lungs are clear to auscultation, respirations are non-labored, breath sounds are equal. No wheezes, stridor, rales, or rhonchi. Gastrointestinal: Soft, non-distended, non-tender abdomen without masses or organomegaly noted. There is no rebound or guarding present. Musculoskeletal: Normal ROM, no tenderness. Strength 5/5. Sensation intact. Pulses equal bilaterally 2+. Neurological: A&O x 3. CN II-XII intact grossly, There are no obvious motor or sensory deficits. Coordination appears grossly intact. Speech is normal. Skin: Skin is warm and dry and no rashes or lesions are noted. Psychiatric: Cooperative, appropriate mood & affect, normal judgment. Limitations: physical limitation Course Vital Signs 12/18/19 12/18/19 00:47 02:19 Temperature 98.2 F Pulse Rate 104 H 71 Respiratory 18 17 Rate Blood Pressure 109/81 116/68 O2 Sat by Pulse 99 100 Oximetry Medical Decision Making - Medical Decision Making Labs stable. Patient has no focal neurological defcitis. No neck stiffness. Patient abdomen benign no pain to palpation. KUB WNL. Patient VS stable. given B12 shot, IVF. Recommend PCP f/u and symptomatic treatment/rest. she is agreeable to this care plan discharge discussed case by attending provider Dr. Lujan - Lab Data Result diagrams: 12/18/19 01:12/18/19 01: Lab Results 12/18/19 12/18/19 12/18/19 Range/Units 01: 01: 01:26 WBC 7.0 (4.0-11.0) k/uL RBC 4.69 (3.80-5.40) m/uL Hgb 14.0 (11.4-16.0) gm/dL Hct 40.7 (34.0-46.0) % MCV 87.0 (80.0-100.0) fL MCH 29.8 (25.0-35.0) pg MCHC 34.3 (31.0-37.0) g/dL RDW 12.6 (11.5-15.5) % Plt Count 308 (150-450) k/uL Neutrophils % 64 % Lymphocytes % 28 % Monocytes % 5 % Eosinophils % 2 % Basophils % 1 % Neutrophils # 4.5 (1.3-7.7) k/uL Lymphocytes # 1.9 (1.0-4.8) k/uL Monocytes # 0.4 (0-1.0) k/uL Eosinophils # 0.1 (0-0.7) k/uL Basophils # 0.0 (0-0.2) k/uL Sodium 136 L (137-145) mmol/L Potassium 4.0 (3.5-5.1) mmol/L Chloride 106 (98-107) mmol/L Carbon Dioxide 23 (22-30) mmol/L Anion Gap 7 mmol/L BUN 15 (7-17) mg/dL Creatinine 0.64 (0.52-1.04) mg/dL Est GFR (CKD-EPI)AfAm >90 (>60 ml/min/1.73 sqM) Est GFR (CKD-EPI)NonAf >90 (>60 ml/min/1.73 sqM) Glucose 100 H (74-99) mg/dL Calcium 9.5 (8.4-10.2) mg/dL Total Bilirubin 0.4 (0.2-1.3) mg/dL AST 22 (14-36) U/L ALT 18 (4-34) U/L Alkaline Phosphatase 76 (38-126) U/L Total Protein 7.4 (6.3-8.2) g/dL Albumin 4.5 (3.5-5.0) g/dL Amylase 41 (30-110) U/L Lipase 64 (23-300) U/L Urine Color Yellow Urine Appearance Clear (Clear) Urine pH 6.5 (5.0-8.0) Ur Specific [place] 1.023 (1.001-1.035) Urine Protein Negative (Negative) Urine Glucose (UA) Negative (Negative) Urine Ketones Negative (Negative) Urine Blood Negative (Negative) Urine Nitrite Negative (Negative) Urine Bilirubin Negative (Negative) Urine Urobilinogen <2.0 (<2.0) mg/dL Ur Leukocyte Esterase Trace H (Negative) Urine RBC 1 (0-5) /hpf Urine WBC 2 (0-5) /hpf Ur Squamous Epith Cells 2 (0-4) /hpf Urine Mucus Occasional H (None) /hpf Disposition Clinical Impression: Nausea & vomiting, Diarrhea, Fatigue Disposition: HOME SELF-CARE Condition: Good Instructions (If sedation given, give patient instructions): Acute Nausea and Vomiting (ED), Acute Diarrhea (ED) Additional Instructions: Please use medication as discussed. Please follow-up with family doctor in the next 2 days.. Please return to emergency room if the symptoms increase or worsen or for any other concerns. Is patient prescribed a controlled substance at d/c from ED?: No Referrals: Faby Dorman MD [Primary Care Provider] - 1-2 days Time of Disposition: 02:24
== END 2019-12-18 02:42 | disposition home or self-care (01) ==
LOC: EC 00:45
DX: R11.2 Nausea with vomiting, unspecified (principal); R19.7 Diarrhea, unspecified; R53.83 Other fatigue
CPT/HCPCS: 36415; 80053; 82150; 83690; 85025; 81001; 74018; 99284; 96374; 96361; 96372; J3415; J2405

== ENCOUNTER 2022-11-22 22:05 | Emergency (ER) | payer OTHER ==
[2022-11-22 22:28] VITALS: RESP 18
--- NOTE | 2022-11-22 23:49 | ED ---
Skin/Abscess/FB HPI - General Chief complaint: Skin/Abscess/Foreign Body Stated complaint: Abcess on lower back Time Seen by Provider: 11/22/22 22:32 Source: patient Mode of arrival: ambulatory Limitations: no limitations - History of Present Illness Initial comments: 22-year-old female presenting with chief complaint of abscess at the top of the gluteal cleft. Patient states that this has been ongoing and worsening for 3 days. She initially thought she was having some routine lower back pain but then noted some swelling at the top of the gluteal cleft. She states that now it is painful to even sit. She has no history of abscesses. No fevers or chills. No nausea or vomiting. No perirectal involvement. - Related Data Previous Rx's Medication Instructions Recorded buPROPion XL [Wellbutrin XL] 150 mg PO DAILY #30 tab.er.24h 01/22/19 Azithromycin [Zithromax Z-pack (6 0 mg PO DIRECTED #6 tab 06/03/19 tabs)] Sulfamethox-Tmp 800-160Mg [Bactrim 1 tab PO Q12HR 7 Days #14 tab 11/22/22 DS 800-160 mg] Allergies Allergy/AdvReac Type Severity Reaction Status Date / Time No Known Allergies Allergy Verified 12/18/19 00:53 Review of Systems ROS Statement: Those systems with pertinent positive or pertinent negative responses have been documented in the HPI. ROS Other: All systems not noted in ROS Statement are negative. Past Medical History Past Medical History: No Reported History Additional Past Medical History / Comment(s): scoliosis, LUPUS History of Any Multi-Drug Resistant Organisms: None Reported Past Surgical History: Back Surgery, Tonsillectomy Additional Past Surgical History / Comment(s): back surgery Past Psychological History: Anxiety, Bipolar Smoking Status: Vaper Past Alcohol Use History: Occasional Past Drug Use History: None Reported - Past Family History mother Additional Family Medical History / Comment(s): depression, schizophrenia, from a suicide General Exam Limitations: no limitations General appearance: alert, in no apparent distress Head exam: Present: atraumatic, normocephalic, normal inspection Eye exam: Present: normal appearance, EOMI Neck exam: Present: normal inspection, full ROM Neurological exam: Present: alert, oriented X3, CN II-XII intact Psychiatric exam: Present: normal affect, normal mood Expanded Type of lesion: Present: abscess (Pilonidal abscess) Course Vital Signs 11/22/22 11/23/22 22:26 00:01 Temperature 98.2 F 98.3 F Pulse Rate 93 84 Respiratory 18 18 Rate Blood Pressure 123/82 111/76 O2 Sat by Pulse 98 Oximetry Procedures - Incision & Drainage Consent Obtained: verbal consent Site: buttock Anesthetic Used: lidocaine 1%, without epi Scalpel Used: #11 I&D Drainage Obtained: Pus, Blood Patient Tolerated Procedure: well Medical Decision Making - Medical Decision Making Was pt. sent in by a medical professional or institution (, RALF, FILTERATION OPERATOR, urgent care, hospital, or group home...) When possible be specific @ -No Did you speak to anyone other than the patient for history (EMS, parent, family, police, friend...)? What history was obtained from this source @ -No Did you review nursing and triage notes (agree or disagree)? Why? @ -I reviewed and agree with nursing and triage notes Were old charts reviewed (outside hosp., previous admission, EMS record, old EKG, old radiological studies, urgent care reports/EKG's, group home records)? Report findings @ -No old charts were reviewed Differential Diagnosis (chest pain, altered mental status, abdominal pain women, abdominal pain men, vaginal bleeding, weakness, fever, dyspnea, syncope, headache, dizziness, GI bleed, back pain, seizure, CVA, palpatations, mental health, musculoskeletal)? @ -Differential includes abscess, cellulitis, this is not an all inclusive list EKG interpreted by me (3pts min.). @ -As above X-rays interpreted by me (1pt min.). @ -None done CT interpreted by me (1pt min.). @ -None done U/S interpreted by me (1pt. min.). @ -None done What testing was considered but not performed or refused? (CT, X-rays, U/S, labs)? Why? @ -None What meds were considered but not given or refused? Why? @ -None Did you discuss the management of the patient with other professionals (professionals i.e. RALF Greer, FILTERATION OPERATOR, lab, RT, psych nurse, director of social work, print shop manager, teacher, project officer, case packer and sealer)? Give summary @ -No Was smoking cessation discussed for >3mins.? @ -No Was critical care preformed (if so, how long)? @ -No Were there social determinants of health that impacted care today? How? (Homelessness, low income, unemployed, alcoholism, drug addiction, transportation, low edu. Level, literacy, decrease access to med. care, halfway, rehab)? @ -No Was there de-escalation of care discussed even if they declined (Discuss DNR or withdrawal of care, Hospice)? DNR status @ -No What co-morbidities impacted this encounter? (DM, HTN, Smoking, COPD, CAD, Cancer, CVA, ARF, Chemo, Hep., AIDS, mental health diagnosis, sleep apnea, morbid obesity)? @ -None Was patient admitted / discharged? Hospital course, mention meds given and route, prescriptions, significant lab abnormalities, going to OR and other pertinent info. @ -22-year-old female presenting with chief complaint of painful bump the top of the gluteal cleft. On physical examination this is noted to be a pilonidal abscess. Area is anesthetized with 1% lidocaine and incised and pus and bladder drained. Patient is started on Bactrim and educated on wound care at home. Follow-up with PCP. Report back to ER with any new or worsening symptoms. Discussed return parameters and answered all questions. Patient conveyed verbal understanding and agreed to the plan. I discussed this case in detail with my attending Dr. Mosqueda Undiagnosed new problem with uncertain prognosis? @ -No Drug Therapy requiring intensive monitoring for toxicity (Heparin, Nitro, Insulin, Cardizem)? @ -No Were any procedures done? @ -No Diagnosis/symptom? @ -Pilonidal abscess Acute, or Chronic, or Acute on Chronic? @ -Acute Uncomplicated (without systemic symptoms) or Complicated (systemic symptoms)? @ -Uncomplicated Side effects of treatment? @ -No Exacerbation, Progression, or Severe Exacerbation? @ -No Poses a threat to life or bodily function? How? (Chest pain, [place], [place], pneumonia, PE, COPD, DKA, ARF, appy, cholecystitis, CVA, Diverticulitis, Homicidal, Suicidal, threat to staff... and all critical care pts) @ -No Disposition Clinical Impression: Pilonidal abscess Disposition: HOME SELF-CARE Condition: Good Instructions (If sedation given, give patient instructions): Pilonidal Cyst (ED), Abscess Incision and Drainage (ED) Additional Instructions: Follow-up with PCP. Report back to ER with any new or worsening symptoms. Take antibiotic as prescribed. Take Motrin and Tylenol as needed for pain control. Use warm compresses daily to help express any remaining pus. Expect to see drainage for the next day or 2. Prescriptions: Sulfamethox-Tmp 800-160Mg [Bactrim DS 800-160 mg] 1 tab PO Q12HR 7 Days #14 tab Is patient prescribed a controlled substance at d/c from ED?: No Referrals: None,Stated [Primary Care Provider] - 1-2 days Arnol Carson MD [Medical Doctor] - 1-2 days Time of Disposition: 23:50
[2022-11-23 00:02] VITALS: BP 111/76; PULSE 84; TEMP 98.3
== END 2022-11-23 00:01 | disposition home or self-care (01) ==
LOC: EC 22:05
DX: L05.01 Pilonidal cyst with abscess (principal); F17.290 Nicotine dependence, other tobacco product, uncomplicated; Z86.59 Personal history of other mental and behavioral disorders
CPT/HCPCS: 10080; 99282

== ENCOUNTER → 2024-10-29 | Outpatient (CLI) | payer OTHER ==
[2024-10-29 15:36] LABS: Basophils # (A) 0.03 X 10*3/uL (0.00-0.10); Basophils % (A) 0.6 %; Eosinophils # (A) 0.12 X 10*3/uL (0.04-0.35); Eosinophils % (A) 2.4 %; HCT 40.8 % (37.2-46.3); HGB 13.7 g/dL (12.0-15.0); Immature Grans, Automated 0.20 %; Lymphocytes # (A) 1.09 X 10*3/uL (0.90-5.00); Lymphocytes % (A) 21.5 %; MCH 29.5 pg (27.0-32.0); MCHC 33.6 g/dL (32.0-37.0); MCV 87.7 FL (80.0-97.0); Monocytes # (A) 0.27 X 10*3/uL (0.20-1.00); Monocytes % (A) 5.3 %; NRBC Per 100 WBC 0 X 10*3/uL (0.00-0.01); Neutrophils # (A) 3.56 X 10*3/uL (1.80-7.70); Neutrophils % (A) 70.0 %; Platelet Count 261 X 10*3/uL (140-440); RBC 4.65 X 10*6/uL (4.10-5.20); RDW 12.7 % (11.5-14.5); WBC 5.08 X 10*3/uL (4.50-10.00)
[2024-10-29 16:01] LABS: Hepatitis B Surface Antigen Nonreactive (Nonreactive); Hepatitis C IgG Antibody Nonreactive (Nonreactive)
[2024-10-29 16:02] LABS: Hepatitis B Surface AB- Quant 3.5 mIU/mL
[2024-10-29 16:04] LABS: ALT 36 U/L (8-44); AST 24 U/L (13-35); Albumin 4.3 g/dL (3.8-4.9); Albumin/Globulin Ratio 2.05 Ratio (1.60-3.17); Alkaline Phosphatase 70 U/L (41-126); Anion Gap 13.60 mmol/L (4.00-12.00); BUN/Creat Ratio 16.14 Ratio (12.00-20.00); Blood Urea Nitrogen 11.3 mg/dL (9.0-27.0); Calcium 9.1 mg/dL (8.7-10.3); Carbon Dioxide 20.4 mmol/L (21.6-31.8); Chloride 105 mmol/L (96-109); Cholesterol 125.00 mg/dL (0.00-200.00); Globulin 2.1 g/dL (1.6-3.3); Glucose 105 mg/dL (70-110); HDL Cholesterol 37.80 mg/dL (40.00-60.00); LDL Cholesterol,Calculated 60.4 mg/dL (0.0-131.0); Potassium 3.8 mmol/L (3.5-5.5); Sodium 139 mmol/L (135-145); Total Protein 6.4 g/dL (6.2-8.2); Triglycerides 134.00 mg/dL (0.00-149.00); VLDL Calculation 26.80 mg/dL (5.00-40.00)
[2024-10-29 16:18] LABS: LDL Cholesterol, Direct 59.30 mg/dL (0.00-129.00)
== END | disposition home or self-care (01) ==
LOC: LABWHC1 07:56
PROVIDERS: ATTEND Dermatology
DX: L40.0 Psoriasis vulgaris (principal)
CPT/HCPCS: 36415; 80053; 80061; 83721; 85025; 86480; 86704; 86706; 86803; 87340